=== PATIENT | male | born 1990 | race Caucasian/White ===

== ENCOUNTER 2017-01-23 19:07 | Emergency (ER) | payer BC ==
[~2017-01-23] VITALS: Ht 172.7 cm; Wt 96.5 kg
[~2017-01-23 19:07] MED LIST: IBUP-1050 PO
[2017-01-23 19:19] VITALS: TEMP 36.9; Ht 172.7 cm; Wt 96.5 kg
[2017-01-23 20:08] VITALS: O2SAT 100
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
[2017-01-23 21:44] VITALS: BP 152/90; PULSE 63; O2SAT 97
== END 2017-01-23 21:45 | disposition home or self-care (01) ==
LOC: C.EDB 19:09 → C.EDD 21:45
DX: T59.7X1A Toxic effect of carbon dioxide, accidental (unintentional), initial encounter (principal); Z87.828 Personal history of other (healed) physical injury and trauma; Z83.3 Family history of diabetes mellitus; Z80.9 Family history of malignant neoplasm, unspecified

== ENCOUNTER → 2017-11-25 | Outpatient (CLI) | payer BC ==
[2017-11-25 15:01] LABS: BLOOD UREA NITROGEN 14 mg/dl (7-18); CALCIUM 9.1 mg/dl (8.5-10.1); CARBON DIOXIDE 27 mmol/L (21-32); CHOLESTEROL 170 mg/dl (0-200); CREATININE 0.98 mg/dl (0.60-1.40); GLUCOSE 87 mg/dl (70-99); LDL CHOLESTEROL CALCULATED 95 mg/dl; POTASSIUM 3.9 mmol/L (3.5-5.1); SODIUM 138 mmol/L (136-145)
[2017-11-25 15:52] LABS: HEP C IGG 13 YRS+OLDER_RFLX NEG (NEG)
== END | disposition home or self-care (01) ==
LOC: C.LAB1850 12:33
PROVIDERS: ATTEND Nurse Practitioner Adult Health
DX: Z20.2 Contact with and (suspected) exposure to infections with a predominantly sexual mode of transmission (principal); Z13.1 Encounter for screening for diabetes mellitus; Z82.49 Family history of ischemic heart disease and other diseases of the circulatory system